=== PATIENT | female | born 1965 | race Caucasian/White ===

== ENCOUNTER 2020-03-22 07:47 | Day surgery (SDC) | payer BC ==
[~2020-03-22 07:47] MED LIST: Lactated Ringers 1,000 ML IV SCH; Lidocaine 1%/Sod Bicarbonate in NS 8.4% 1 ML Syringe IDERM PRN; Sodium Chloride 0.9% 10 ML Syringe FLUSH PRN
--- NOTE | 2020-03-22 08:07 | PCM.PREANE ---
Preanesthetic Assessment - Procedure Proposed Procedure: screening colonoscopy - Anesthesia/Transfusion/Family Hx Anesthesia History: Prior Anesthesia Without Reaction Family History of Anesthesia Reaction: No Transfusion History: No Prior Transfusion(s) - Review of Systems General: No Symptoms Pulmonary: No Symptoms Cardiovascular: No Symptoms Gastrointestinal: No Symptoms Neurological: No Symptoms Other: Reports: None - Physical Assessment NPO Status Date: 03/22/20 NPO Status Time: 04:15 Vital Signs: Last Vital Signs Temp 97.3 F 03/22/20 07:55 Pulse 82 03/22/20 07:55 Resp 16 03/22/20 07:55 BP 123/81 03/22/20 07:55 Pulse Ox 99 03/22/20 07:55 Height: 5 ft 7 in Weight: 83.461 kg ASA Class: 2 Mental Status: Alert & Oriented x3 Airway Class: Mallampati = 1 Dentition: Reports: Normal Dentition Thyro-Mental Finger Breadths: 3 Mouth Opening Finger Breadths: 3 ROM/Head Extension: Full Lungs: Clear to Auscultation, Normal Respiratory Effort Cardiovascular: Regular Rate, Regular Rhythm, No Murmurs - Lab Values: Laboratory Last Values SARS Virus RNA (PCR) Negative (NEGATIVE) 03/21/20 09:40 - Allergies Allergies/Adverse Reactions: Allergies Allergy/AdvReac Type Severity Reaction Status Date / Time erythromycin base Allergy Cannot Verified 03/21/20 15:01 Remember nut - unspecified Allergy Cannot Verified 03/21/20 15:01 Remember Penicillins Allergy Cannot Verified 03/21/20 15:01 Remember dust Allergy Cannot Uncoded 03/21/20 15:01 Remember - Blood Blood Available: No - Acknowledgements Anesthesia Type Planned: MAC Pt an Appropriate Candidate for the Planned Anesthesia: Yes Alternatives and Risks of Anesthesia Discussed w Pt/Guardian: Yes Pt/Guardian Understands and Agrees with Anesthesia Plan: Yes PreAnesthesia Questionnaire HEENT History: Reports: Allergic Rhinitis, Impaired Vision Cardiovascular History: Reports: Hypertension Respiratory History: Reports: Asthma (no inhaler use for 6 months- uses when gets a cold etc) Gastrointestinal History: Reports: None Genitourinary History: Reports: None TRANSIT MANAGER History: Reports: None Musculoskeletal History: Reports: None Neurological History: Reports: None Psychiatric History: Reports: None Endocrine/Metabolic History: Reports: None 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: Bleeding Disorder Immunologic History: Reports: None Oncologic (Cancer) History: Reports: None Dermatologic History: Reports: None - Infectious Disease History Infectious Disease History: Reports: None - Past Surgical History Head Surgeries/Procedures: Reports: None Cardiovascular Surgical History: Reports: None Respiratory Surgical History: Reports: None GI Surgical History: Reports: None Female Surgical History: Reports: Tubal Ligation Male Surgical History: Reports: None Endocrine Surgical History: Reports: None Neurological Surgical History: Reports: None Musculoskeletal Surgical History: Reports: None Oncologic Surgical History: Reports: None Dermatological Surgical History: Reports: None - SUBSTANCE USE Smoking Status *Q: Never Smoker Tobacco Use Within Last Twelve Months: No Second Hand Smoke Exposure: No Days Per Week of Alcohol Use: 1 Number of Drinks Per Day: 1 Total Drinks Per Week: 1 Recreational Drug Use History: No - HOME MEDS Home Medications: Home Meds Albuterol [Proair HFA] 1 - 2 puff INH Q4H PRN 03/21/20 [History] Cetirizine HCl [Zyrtec] 10 mg PO DAILY 03/21/20 [History] hydroCHLOROthiazide [Hydrochlorothiazide] 25 mg PO DAILY 03/21/20 [History] lisinopriL [Lisinopril] 10 mg PO BID 03/21/20 [History] - CURRENT (IN HOUSE) MEDS Current Meds: Current Medications Lactated Ringer's (Ringers, Lactated) 1,000 mls @ 125 mls/hr IV ASDIRECTED TONG Stop: 03/22/20 23:00 Lidocaine/Sodium Bicarbonate (Buffered Lidocaine 1% In Ns 8.4%) 0.25 ml IDERM ONETIME PRN PRN Reason: Prior to IV Start Stop: 03/22/20 18:00 Sodium Chloride (Saline Flush) 10 ml FLUSH ASDIRECTED PRN PRN Reason: Keep Vein Open Stop: 03/22/20 18:00 Discontinued Medications Lactated Ringer's (Ringers, Lactated) 1,000 mls @ 125 mls/hr IV ASDIRECTED TONG Stop: 03/10/20 23:00 Lidocaine/Sodium Bicarbonate (Buffered Lidocaine 1% In Ns 8.4%) 0.25 ml IDERM ONETIME PRN PRN Reason: Prior to IV Start Stop: 03/10/20 18:00 Sodium Chloride (Saline Flush) 10 ml FLUSH ASDIRECTED PRN PRN Reason: Keep Vein Open Stop: 03/10/20 18:00
[2020-03-22] MEDS ORDERED: Midazolam 1 MG/ML 2 ML SDV ONE (08:12)
[2020-03-22] MEDS ORDERED: Propofol 200 MG/20 ML SDV ONE (08:12)
[2020-03-22] MEDS ORDERED: fentaNYL 100 MCG/2 ML SDV ONE (08:12)
[2020-03-22] MEDS ORDERED: Lidocaine 1% 4 ML ONE (08:12)
--- NOTE | 2020-03-22 09:23 | PCM48HPAN ---
Post Anesthesia Note - EVALUATION WITHIN 48HRS OF ANESTHETIC Vital Signs in Normal Range: Yes Patient Participated in Evaluation: Yes Respiratory Function Stable: Yes Airway Patent: Yes Cardiovascular Function Stable: Yes Hydration Status Stable: Yes Pain Control Satisfactory: Yes Nausea and Vomiting Control Satisfactory: Yes Mental Status Recovered: Yes Vital Signs: Last Vital Signs Temp 97.3 F 03/22/20 07:55 Pulse 82 03/22/20 07:55 Resp 16 03/22/20 07:55 BP 123/81 03/22/20 07:55 Pulse Ox 99 03/22/20 07:55 0920 99/62 71 16 97.5 93%
--- NOTE | 2020-03-22 09:32 | PCM.PRNOTE ---
- Free Text/Narrative Note: Date: 03/22/2020 Procedure: screening colonoscopy Findings: good prep. Single small polyp in rectum biopsied. Detailed Report: The patient was taken to the endoscopy suite and placed in left lateral decubitus position. Time out was performed and monitored anesthesia care initiated. The anus appeared normal. Hypertrophied anal papillae were noted on digital rectal exam. The colonoscope was then inserted and advanced with ease to the cecum. The appendiceal orifice and ileocecal valve were visualized. The prep was very good, though a few areas had lots of bubbles making visualization more difficult. The scope was slowly withdrawn and mucosal surfaces carefully inspected. A single hyperplastic-appearing small polyp in the rectum was biopsied with cold forceps. No diverticular disease was observed. There were mild internal hemorrhoids noted. Air was evacuated and the scope withdrawn. The patient tolerated the procedure well. Jayro العراقي MD General Surgery
== END 2020-03-22 10:07 | disposition home or self-care (01) ==
LOC: JD.SDS 07:47
PROVIDERS: ATTEND Surgery
DX: Z12.11 Encounter for screening for malignant neoplasm of colon (principal); K62.1 Rectal polyp; K62.89 Other specified diseases of anus and rectum; Z11.59 Encounter for screening for other viral diseases; J45.909 Unspecified asthma, uncomplicated; K64.8 Other hemorrhoids; I10 Essential (primary) hypertension; Z88.0 Allergy status to penicillin; Z88.1 Allergy status to other antibiotic agents; Z79.899 Other long term (current) drug therapy; Z91.018 Allergy to other foods; Z91.09 Other allergy status, other than to drugs and biological substances
CPT/HCPCS: 00812; J2001; J2250; J2704; J3010; J7120; U0002